=== PATIENT | male | born 1980 | race Caucasian/White ===

== ENCOUNTER 2017-03-05 10:18 | Emergency (ER) | payer OTHER ==
[~2017-03-05] VITALS: Ht 177.8 cm; Wt 95.3 kg
[~2017-03-05 10:18] MED LIST: AMARYL2 MG PO; LISINOPRIL10 MG PO; METFORMIN1000 MG PO
[2017-03-05] MEDS ORDERED: TRIPLE ANTIBI28.4 G1 T ×2 (11:13→11:14)
[2017-03-05] MEDS ORDERED: SEPTDS PO ×2 (11:13→11:14)
== END 2017-03-05 11:44 | disposition home or self-care (01) ==
LOC: ED 10:18
DX: L02.214 Cutaneous abscess of groin (principal); E10.65 Type 1 diabetes mellitus with hyperglycemia; Z91.19 Patient's noncompliance with other medical treatment and regimen

== ENCOUNTER → 2017-08-06 | Day surgery (SDC) | payer OTHER ==
[~2017-08-06] VITALS: Ht 172.7 cm; Wt 72.6 kg
[~2017-08-06] MED LIST changes: +ATORVASTATIN CA10 M1 PO; -LISINOPRIL10 MG PO; +LISINOPRIL5 MG PO; +NOVOLIN 70100 UNIT/1 SC; +OMEPRAZOLE40 MG PO; +SEPTDS PO; +TAB-A-VITE1 EACH PO; +TRIPLE ANTIBI28.4 G1 T
--- NOTE | ~2017-08-06 | O ---
[place], [place] OPERATIVE NOTE NAME: LAISHA ROWLAND UNIT #: [id number] ROOM: DOCTOR: ARNALDO SHEETS MD BIRTHDATE: [birth year] DOS: 08/06/2017 INDICATION FOR PROCEDURE: A 37-year-old patient who presented with solid food dysphagia, progressively worsening. ALLERGIES: No known medication. FAMILY HISTORY: Father with gastric CA. PAST SURGICAL HISTORY: ENT surgeries. PAST MEDICAL HISTORY: Hypertension, diabetes, hyperlipidemia, gastritis, and dysphagia. SOCIAL HISTORY: Nonsmoker, nonalcohol consumer. Drinks 4 cans of Pepsi per day that has been advised to abstain from. PROCEDURE: Today's procedure part of investigation is panendoscopy plus biopsy plus balloon dilation of esophagus. PREMEDICATION: Versed and Diprivan SCOPE: Olympus forward-viewing gastroscope Q10 video. REPORT: After putting the patient in left lateral position and application of lubricant to the scope, scope was introduced. Thereafter, under direct visualization, I advanced through the length of esophagus without difficulty. Benign esophageal stricture was identified. Gastric pouch was entered. Bile reflux gastritis seen. Antral biopsy obtained. Duodenal bulb, second and third part within normal limits. The patient was extubated to the mid gastric pouch. A balloon size 20 was introduced. Gastric pouch inflated to size 20 and gradually sweeped along the length of the entire esophagus. Highest resistance in the mid esophagus and lower esophagus was experienced. The patient extubated and tolerated the procedure well. IMPRESSION: Benign esophageal stricture, status post balloon dilation, bile reflux gastritis, status post biopsy. PLAN AND DISCUSSION: Omeprazole 20 mg 1 every day was added to the regimen and the patient advised to abstain from drinking 4 cans of carbonated sodas daily and follow up as outpatient routinely with you in office, p.r.n. visit with us in [facility]. I thank you very much indeed for your kind referral. [place], [place] OPERATIVE NOTE NAME: LAISHA ROWLAND UNIT #: [id number] ROOM: DOCTOR: ARNALDO SHEETS MD BIRTHDATE: [birth year] ARNALDO SHEETS MD CM:OPRECORD:OPERATIVE NOTE [id number] ARNALDO SHEETS MD 08/10/17 1441 interface
[2017-08-06 12:59] VITALS: BP 113/74
[2017-08-06 14:30] VITALS: BP 97/56
[2017-08-06 14:44] VITALS: BP 102/63
[2017-08-06 14:55] VITALS: BP 99/54
== END | disposition home or self-care (01) ==
LOC: SDC 08-03 08:45
DX: K29.50 Unspecified chronic gastritis without bleeding (principal); K22.2 Esophageal obstruction; I10 Essential (primary) hypertension; E11.9 Type 2 diabetes mellitus without complications; E78.5 Hyperlipidemia, unspecified; E66.09 Other obesity due to excess calories; Z80.0 Family history of malignant neoplasm of digestive organs; Z98.890 Other specified postprocedural states; Z79.899 Other long term (current) drug therapy; Z83.3 Family history of diabetes mellitus; Z82.49 Family history of ischemic heart disease and other diseases of the circulatory system; Z68.32 Body mass index [BMI] 32.0-32.9, adult

== ENCOUNTER → 2019-12-06 | Outpatient (CLI) | payer OTHER ==
[2019-12-06 10:15] LABS: BASO % 0.5 % (0.0-1.0); EOS # 0.2 10*3/uL (0.0-0.4); EOS % 1.8 % (1.0-4.0); LYMPH # 2.4 10*3/uL (1.3-4.4); LYMPH % 28.5 % (27.0-41.0); MEAN CELL VOLUME 82.9 fl (80.0-94.0); MEAN CORPUSCULAR HGB 26.2 pg (27.0-31.0); MEAN CORPUSCULAR HGB CONC 31.6 g/dl (33.0-37.0); MONO # 0.7 10*3/uL (0.1-1.0); NEUT # 5.1 10*3/uL (2.3-7.9); PLATELET COUNT AUTOMATED 331 10*3/uL (130-400); RED BLOOD COUNT 3.86 10*6/uL (4.50-5.90); RETICULOCYTE % 1.54 % (0.50-2.50); WHITE BLOOD COUNT 8.4 10*3/uL (4.8-10.8)
[2019-12-06 10:42] LABS: ALBUMIN 3.4 gm/dl (3.1-4.5); ALKALINE PHOSPHATASE 132 U/L (45-117); BUN 16 mg/dl (7-24); CHLORIDE 106 mmol/L (98-107); CHOLESTEROL 105 mg/dL (<200); CREATININE 1.11 mg/dL (0.70-1.30); GAMMA GLUTAMYL TRANSPEPTIDASE 30 U/L (15-85); HDL CHOLESTEROL 43 mg/dl (40-60); IRON 23 ug/dL (65-175); LDL CHOLESTEROL 40 mg/dL (9-159); POTASSIUM 4.1 mmol/L (3.5-5.1); SGOT/AST 20 IU/L (3-35); SGPT/ALT 35 U/L (12-78); SODIUM 140 mmol/L (136-145); TOTAL IRON BINDING CAPACITY 383 ug/dl (250-450); TOTAL PROTEIN 7.3 gm/dL (6.4-8.2); TRIGLYCERIDES 110 mg/dl (<150); VLDL CHOLESTEROL 22 mg/dL (6-40)
[2019-12-06 10:48] LABS: CPK 202 U/L (39-308)
[2019-12-06 10:53] LABS: BILIRUBIN NEGATIVE; BLOOD NEGATIVE (NEGATIVE); CLARITY CLEAR (CLEAR); COLOR YELLOW (YELLOW); GLUCOSE NEGATIVE; KETONE NEGATIVE; LEUKO ESTERASE NEGATIVE (NEGATIVE); NITRITE NEGATIVE (NEGATIVE); PH 6.5 (4.5-8.0); SPECIFIC GRAVITY 1.025 (1.001-1.030)
[2019-12-06 11:01] LABS: FERRITIN 4.5 ng/mL (22.0-322.0); VITAMIN D, 25-HYDROXY 45.9 ng/mL (30-100)
[2019-12-06 11:04] LABS: BACTERIA TRACE; MUCOUS 1+; WBC 0-2 wbc/hpf (0-5)
== END | disposition home or self-care (01) ==
LOC: LAB 09:35
PROVIDERS: ATTEND Family Medicine
DX: R79.89 Other specified abnormal findings of blood chemistry (principal); R53.83 Other fatigue; E55.9 Vitamin D deficiency, unspecified

== ENCOUNTER → 2020-06-04 | Outpatient (CLI) | payer OTHER ==
[2020-06-04 11:43] LABS: BASO # 0.1 10*3/uL (0.0-0.1); BASO % 0.8 % (0.0-1.0); EOS # 0.3 10*3/uL (0.0-0.4); EOS % 4.1 % (1.0-4.0); HEMATOCRIT 35.3 % (42.0-52.0); LYMPH # 2.3 10*3/uL (1.3-4.4); LYMPH % 28.7 % (27.0-41.0); MEAN CELL VOLUME 74.9 fl (80.0-94.0); MEAN CORPUSCULAR HGB 21.9 pg (27.0-31.0); MEAN CORPUSCULAR HGB CONC 29.2 g/dl (33.0-37.0); MEAN PLATELET VOLUME 9.6 fl (9.6-12.3); MONO # 0.6 10*3/uL (0.1-1.0); MONO % 7.6 % (3.0-9.0); NEUT # 4.6 10*3/uL (2.3-7.9); NEUT % 58.7 % (47.0-73.0); PLATELET COUNT AUTOMATED 334 10*3/uL (130-400); RED BLOOD COUNT 4.71 10*6/uL (4.50-5.90); RETICULOCYTE % 1.51 % (0.50-2.50); WHITE BLOOD COUNT 7.9 10*3/uL (4.8-10.8)
[2020-06-04 11:58] LABS: ALBUMIN 3.5 gm/dl (3.1-4.5); ALKALINE PHOSPHATASE 134 U/L (45-117); BUN 15 mg/dl (7-24); CHLORIDE 108 mmol/L (98-107); CHOLESTEROL 106 mg/dL (<200); CPK 245 U/L (39-308); CREATININE 1.05 mg/dL (0.70-1.30); GAMMA GLUTAMYL TRANSPEPTIDASE 19 U/L (15-85); HDL CHOLESTEROL 48 mg/dl (40-60); IRON 26 ug/dL (65-175); LDL CHOLESTEROL 35 mg/dL (9-159); POTASSIUM 4.3 mmol/L (3.5-5.1); SGOT/AST 19 IU/L (3-35); SGPT/ALT 28 U/L (12-78); SODIUM 141 mmol/L (136-145); TOTAL IRON BINDING CAPACITY 437 ug/dl (250-450); TOTAL PROTEIN 7.6 gm/dL (6.4-8.2); TRIGLYCERIDES 116 mg/dl (<150); VLDL CHOLESTEROL 23 mg/dL (6-40)
[2020-06-04 12:12] LABS: BILIRUBIN Negative (Negative); BLOOD Negative (Negative); CLARITY Clear (Clear); COLOR Yellow (Yellow); GLUCOSE Negative (Negative); KETONE Negative (Negative); LEUKO ESTERASE Negative (Negative); NITRITE Negative (Negative)
[2020-06-04 12:36] LABS: VITAMIN D, 25-HYDROXY 47.9 ng/mL (30-100)
[2020-06-04 12:37] LABS: FERRITIN 5.1 ng/mL (22.0-322.0)
[2020-06-04 13:20] LABS: EPITHELIAL CELLS 0-2; RBC 0-2 rbc/hpf (0-2); WBC 0-2 wbc/hpf (0-5)
== END | disposition home or self-care (01) ==
LOC: LAB 11:18
PROVIDERS: ATTEND Family Medicine
DX: E78.5 Hyperlipidemia, unspecified (principal); E55.9 Vitamin D deficiency, unspecified; R53.83 Other fatigue; R79.89 Other specified abnormal findings of blood chemistry

== ENCOUNTER → 2020-11-28 | Outpatient (CLI) | payer OTHER ==
[2020-11-28 10:45] LABS: BASO # 0.1 10*3/uL (0.0-0.1); BASO % 0.6 % (0.0-1.0); EOS # 0.7 10*3/uL (0.0-0.4); EOS % 7.8 % (1.0-4.0); HEMATOCRIT 38.8 % (42.0-52.0); LYMPH # 2.3 10*3/uL (1.3-4.4); LYMPH % 26.4 % (27.0-41.0); MEAN CELL VOLUME 86.4 fl (80.0-94.0); MEAN CORPUSCULAR HGB 28.1 pg (27.0-31.0); MEAN CORPUSCULAR HGB CONC 32.5 g/dl (33.0-37.0); MONO # 0.6 10*3/uL (0.1-1.0); MONO % 6.8 % (3.0-9.0); NEUT # 5.1 10*3/uL (2.3-7.9); NEUT % 58.1 % (47.0-73.0); PLATELET COUNT AUTOMATED 280 10*3/uL (130-400); RED BLOOD COUNT 4.49 10*6/uL (4.50-5.90); RED CELL DISTRI WIDTH 15.4 % (0-14.5); RETICULOCYTE % 1.67 % (0.50-2.50); WHITE BLOOD COUNT 8.8 10*3/uL (4.8-10.8)
[2020-11-28 10:46] LABS: BILIRUBIN Negative (Negative); BLOOD Negative (Negative); CLARITY Clear (Clear); COLOR Yellow (Yellow); GLUCOSE Negative (Negative); KETONE Negative (Negative); LEUKO ESTERASE Negative (Negative); NITRITE Negative (Negative)
[2020-11-28 11:03] LABS: ALBUMIN 3.7 gm/dl (3.1-4.5); ALKALINE PHOSPHATASE 157 U/L (45-117); BUN 10 mg/dl (7-24); CHLORIDE 106 mmol/L (98-107); CHOLESTEROL 118 mg/dL (<200); CREATININE 0.99 mg/dL (0.70-1.30); GAMMA GLUTAMYL TRANSPEPTIDASE 30 U/L (15-85); IRON 31 ug/dL (65-175); LDL CHOLESTEROL 40 mg/dL (9-159); POTASSIUM 4.2 mmol/L (3.5-5.1); SGOT/AST 22 IU/L (3-35); SGPT/ALT 42 U/L (12-78); SODIUM 140 mmol/L (136-145); TOTAL IRON BINDING CAPACITY 368 ug/dl (250-450); TOTAL PROTEIN 7.6 gm/dL (6.4-8.2); TRIGLYCERIDES 156 mg/dl (<150)
[2020-11-28 11:09] LABS: CPK 151 U/L (39-308); WBC 0-2 wbc/hpf (0-5)
[2020-11-28 11:52] LABS: FERRITIN 8.9 ng/mL (22.0-322.0); VITAMIN D, 25-HYDROXY 44.1 ng/mL (30-100)
== END | disposition home or self-care (01) ==
LOC: LAB 10:19
PROVIDERS: ATTEND Family Medicine
DX: E78.5 Hyperlipidemia, unspecified (principal); R79.89 Other specified abnormal findings of blood chemistry; R53.83 Other fatigue; R74.8 Abnormal levels of other serum enzymes; E55.9 Vitamin D deficiency, unspecified; E10.9 Type 1 diabetes mellitus without complications

== ENCOUNTER → 2021-06-09 | Outpatient (CLI) | payer OTHER ==
[2021-06-09 10:18] LABS: BASO % 0.6 % (0.0-1.0); EOS # 0.1 10*3/uL (0.0-0.4); EOS % 2.1 % (1.0-4.0); HEMATOCRIT 41.8 % (42.0-52.0); LYMPH # 1.8 10*3/uL (1.3-4.4); LYMPH % 27.2 % (27.0-41.0); MEAN CELL VOLUME 88.9 fl (80.0-94.0); MEAN CORPUSCULAR HGB 30.2 pg (27.0-31.0); MEAN PLATELET VOLUME 9.8 fl (9.6-12.3); MONO # 0.4 10*3/uL (0.1-1.0); MONO % 6.4 % (3.0-9.0); NEUT # 4.3 10*3/uL (2.3-7.9); NEUT % 63.6 % (47.0-73.0); PLATELET COUNT AUTOMATED 249 10*3/uL (130-400); RED CELL DISTRI WIDTH 14.5 % (0-14.5); RETICULOCYTE % 2.44 % (0.50-2.50); WHITE BLOOD COUNT 6.7 10*3/uL (4.8-10.8)
[2021-06-09 10:25] LABS: BILIRUBIN Negative (Negative); BLOOD Negative (Negative); CLARITY Clear (Clear); COLOR Yellow (Yellow); GLUCOSE Negative (Negative); KETONE Negative (Negative); LEUKO ESTERASE Negative (Negative); NITRITE Negative (Negative)
[2021-06-09 10:35] LABS: CHLORIDE 106 mmol/L (98-107); POTASSIUM 4.1 mmol/L (3.5-5.1); SODIUM 141 mmol/L (136-145)
[2021-06-09 10:53] LABS: ALKALINE PHOSPHATASE 123 U/L (45-117); BUN 12 mg/dl (7-24); CHOLESTEROL 113 mg/dL (<200); CREATININE 0.95 mg/dL (0.70-1.30); GAMMA GLUTAMYL TRANSPEPTIDASE 39 U/L (15-85); IRON 56 ug/dL (65-175); LDL CHOLESTEROL 40 mg/dL (9-159); SGOT/AST 27 IU/L (3-35); SGPT/ALT 66 U/L (12-78); TOTAL IRON BINDING CAPACITY 311 ug/dl (250-450); TOTAL PROTEIN 7.3 gm/dL (6.4-8.2); TRIGLYCERIDES 154 mg/dl (<150)
[2021-06-09 11:12] LABS: BACTERIA TRACE; EPITHELIAL CELLS 0-2; MUCOUS TRACE; RBC 0-2 rbc/hpf (0-2); WBC 0-2 wbc/hpf (0-5)
[2021-06-09 11:49] LABS: FERRITIN 21.6 ng/mL (22.0-322.0); VITAMIN D, 25-HYDROXY 48.6 ng/mL (30-100)
== END | disposition home or self-care (01) ==
LOC: LAB 09:50
PROVIDERS: ATTEND Family Medicine
DX: E55.9 Vitamin D deficiency, unspecified (principal); R79.89 Other specified abnormal findings of blood chemistry; R53.83 Other fatigue; R74.8 Abnormal levels of other serum enzymes; E10.9 Type 1 diabetes mellitus without complications

== ENCOUNTER → 2021-11-10 | Outpatient (CLI) | payer OTHER ==
[2021-11-10 11:13] LABS: BASO % 0.6 % (0.0-1.0); BILIRUBIN Negative (Negative); BLOOD Negative (Negative); CLARITY Clear (Clear); COLOR Dark Yellow (Yellow); EOS # 0.1 10*3/uL (0.0-0.4); EOS % 2.2 % (1.0-4.0); GLUCOSE Negative (Negative); HEMATOCRIT 34.7 % (42.0-52.0); KETONE Trace (Negative); LEUKO ESTERASE Negative (Negative); LYMPH # 1.6 10*3/uL (1.3-4.4); LYMPH % 25.5 % (27.0-41.0); MEAN CELL VOLUME 94.3 fl (80.0-94.0); MEAN CORPUSCULAR HGB 30.4 pg (27.0-31.0); MEAN CORPUSCULAR HGB CONC 32.3 g/dl (33.0-37.0); MONO # 0.4 10*3/uL (0.1-1.0); MONO % 6.7 % (3.0-9.0); NEUT % 64.8 % (47.0-73.0); NITRITE Negative (Negative); PLATELET COUNT AUTOMATED 276 10*3/uL (130-400); RED BLOOD COUNT 3.68 10*6/uL (4.50-5.90); RED CELL DISTRI WIDTH 13.3 % (0-14.5); RETICULOCYTE % 2.88 % (0.50-2.50); SPECIFIC GRAVITY 1.025 (1.001-1.030); WHITE BLOOD COUNT 6.2 10*3/uL (4.8-10.8)
[2021-11-10 11:25] LABS: BACTERIA TRACE; WBC 0-2 wbc/hpf (0-5)
[2021-11-10 13:29] LABS: CHLORIDE 111 mmol/L (98-107); POTASSIUM 4.3 mmol/L (3.5-5.1); SODIUM 142 mmol/L (136-145)
[2021-11-10 13:46] LABS: ALKALINE PHOSPHATASE 114 U/L (45-117); BUN 13 mg/dl (7-24); CHOLESTEROL 104 mg/dL (<200); CREATININE 0.89 mg/dL (0.70-1.30); GAMMA GLUTAMYL TRANSPEPTIDASE 18 U/L (15-85); IRON 49 ug/dL (65-175); LDL CHOLESTEROL 39 mg/dL (9-159); SGOT/AST 26 IU/L (3-35); SGPT/ALT 33 U/L (12-78); TRIGLYCERIDES 90 mg/dl (<150)
== END | disposition home or self-care (01) ==
LOC: LAB 10:21
PROVIDERS: ATTEND Family Medicine
DX: E78.5 Hyperlipidemia, unspecified (principal); R79.89 Other specified abnormal findings of blood chemistry; R53.83 Other fatigue; R74.8 Abnormal levels of other serum enzymes

== ENCOUNTER → 2022-03-23 | Outpatient (CLI) | payer OTHER ==
[2022-03-23 10:12] LABS: BILIRUBIN Negative (Negative); BLOOD Negative (Negative); CLARITY Clear (Clear); COLOR Yellow (Yellow); GLUCOSE Negative (Negative); KETONE Negative (Negative); LEUKO ESTERASE Negative (Negative); NITRITE Negative (Negative); PH 5.5 (4.5-8.0); SPECIFIC GRAVITY 1.025 (1.001-1.030)
[2022-03-23 10:15] LABS: BASO % 0.4 % (0.0-1.0); EOS # 0.2 10*3/uL (0.0-0.4); EOS % 2.7 % (1.0-4.0); HEMATOCRIT 43.3 % (42.0-52.0); LYMPH # 1.9 10*3/uL (1.3-4.4); LYMPH % 26.8 % (27.0-41.0); MEAN CELL VOLUME 88.5 fl (80.0-94.0); MEAN CORPUSCULAR HGB 29.7 pg (27.0-31.0); MEAN CORPUSCULAR HGB CONC 33.5 g/dl (33.0-37.0); MEAN PLATELET VOLUME 10.3 fl (9.6-12.3); MONO # 0.4 10*3/uL (0.1-1.0); MONO % 6.4 % (3.0-9.0); NEUT # 4.4 10*3/uL (2.3-7.9); NEUT % 63.4 % (47.0-73.0); PLATELET COUNT AUTOMATED 238 10*3/uL (130-400); RED BLOOD COUNT 4.89 10*6/uL (4.50-5.90); RED CELL DISTRI WIDTH 13.5 % (0-14.5); RETICULOCYTE % 1.35 % (0.50-2.50); WHITE BLOOD COUNT 6.9 10*3/uL (4.8-10.8)
[2022-03-23 10:32] LABS: ALKALINE PHOSPHATASE 125 U/L (46-116); BUN 17 mg/dl (9-23); CHLORIDE 104 mmol/L (98-107); CHOLESTEROL 115 mg/dL (<200); GAMMA GLUTAMYL TRANSPEPTIDASE 43 U/L (0-73); LDL CHOLESTEROL 47 mg/dL (9-159); POTASSIUM 4.4 mmol/L (3.4-5.1); SGPT/ALT 49 U/L (10-49); THYROID STIM HORMONE (HS) 1.948 uIU/ml (0.550-4.780); TRIGLYCERIDES 100 mg/dl (<150)
[2022-03-23 10:36] LABS: BACTERIA TRACE; EPITHELIAL CELLS 0-2; RBC 0-2 rbc/hpf (0-2); WBC 0-2 wbc/hpf (0-5)
== END | disposition home or self-care (01) ==
LOC: LAB 09:22
PROVIDERS: ATTEND Family Medicine
DX: E78.5 Hyperlipidemia, unspecified (principal); E55.9 Vitamin D deficiency, unspecified; R79.89 Other specified abnormal findings of blood chemistry; R53.83 Other fatigue; R74.8 Abnormal levels of other serum enzymes

== ENCOUNTER → 2022-08-19 | Outpatient (CLI) | payer MEDICAID ==
[2022-08-19 11:26] LABS: BILIRUBIN Negative (Negative); BLOOD Negative (Negative); CLARITY Clear (Clear); COLOR Yellow (Yellow); GLUCOSE Negative (Negative); KETONE Negative (Negative); LEUKO ESTERASE Negative (Negative); NITRITE Negative (Negative); PH 5.5 (4.5-8.0); SPECIFIC GRAVITY 1.025 (1.001-1.030)
[2022-08-19 11:27] LABS: BASO % 0.4 % (0.0-1.0); EOS # 0.1 10*3/uL (0.0-0.4); EOS % 1.4 % (1.0-4.0); HEMATOCRIT 43.8 % (42.0-52.0); LYMPH # 2.2 10*3/uL (1.3-4.4); LYMPH % 29.2 % (27.0-41.0); MEAN CELL VOLUME 92.2 fl (80.0-94.0); MEAN CORPUSCULAR HGB 31.4 pg (27.0-31.0); MEAN PLATELET VOLUME 10.2 fl (9.6-12.3); MONO # 0.5 10*3/uL (0.1-1.0); MONO % 6.6 % (3.0-9.0); NEUT # 4.7 10*3/uL (2.3-7.9); NEUT % 62.1 % (47.0-73.0); PLATELET COUNT AUTOMATED 251 10*3/uL (130-400); RED BLOOD COUNT 4.75 10*6/uL (4.50-5.90); RED CELL DISTRI WIDTH 12.1 % (0-14.5); RETICULOCYTE % 1.09 % (0.50-2.50); WHITE BLOOD COUNT 7.6 10*3/uL (4.8-10.8)
[2022-08-19 11:48] LABS: BACTERIA TRACE; EPITHELIAL CELLS 0-2; RBC 0-2 rbc/hpf (0-2); WBC 0-2 wbc/hpf (0-5)
[2022-08-19 11:55] LABS: ALKALINE PHOSPHATASE 137 U/L (46-116); BUN 16 mg/dl (9-23); CHLORIDE 105 mmol/L (98-107); CHOLESTEROL 101 mg/dL (<200); GAMMA GLUTAMYL TRANSPEPTIDASE 40 U/L (0-73); LDL CHOLESTEROL 42 mg/dL (9-159); POTASSIUM 4.1 mmol/L (3.4-5.1); SGPT/ALT 35 U/L (10-49); T3 UPTAKE 23.6 % (22.4-36.7); THYROID STIM HORMONE (HS) 1.073 uIU/ml (0.550-4.780); THYROXINE (T4) TOTAL 8.3 ug/dl (4.5-10.9); TOTAL PROTEIN 7.5 gm/dL (6.0-8.0); TRIGLYCERIDES 91 mg/dl (<150)
[2022-08-19 11:56] LABS: VITAMIN D, 25-HYDROXY 52.3 ng/mL (30-100)
== END | disposition home or self-care (01) ==
LOC: LAB 10:26
PROVIDERS: ATTEND Family Medicine
DX: E78.5 Hyperlipidemia, unspecified (principal); E55.9 Vitamin D deficiency, unspecified; R79.89 Other specified abnormal findings of blood chemistry; R53.83 Other fatigue; R74.8 Abnormal levels of other serum enzymes

== ENCOUNTER → 2022-12-23 | Outpatient (CLI) | payer MEDICAID ==
[2022-12-23 10:29] LABS: BASO % 0.4 % (0.0-1.0); EOS # 0.2 10*3/uL (0.0-0.4); EOS % 2.7 % (1.0-4.0); HEMATOCRIT 42.5 % (42.0-52.0); LYMPH # 2.1 10*3/uL (1.3-4.4); MEAN CELL VOLUME 94.4 fl (80.0-94.0); MEAN CORPUSCULAR HGB 31.8 pg (27.0-31.0); MEAN CORPUSCULAR HGB CONC 33.6 g/dl (33.0-37.0); MEAN PLATELET VOLUME 9.6 fl (9.6-12.3); MONO # 0.5 10*3/uL (0.1-1.0); MONO % 6.6 % (3.0-9.0); NEUT # 4.5 10*3/uL (2.3-7.9); PLATELET COUNT AUTOMATED 229 10*3/uL (130-400); RED CELL DISTRI WIDTH 12.6 % (0-14.5); RETICULOCYTE % 0.91 % (0.50-2.50); WHITE BLOOD COUNT 7.4 10*3/uL (4.8-10.8)
[2022-12-23 10:33] LABS: BILIRUBIN Negative (Negative); BLOOD Negative (Negative); CLARITY Clear (Clear); COLOR Yellow (Yellow); GLUCOSE Negative (Negative); KETONE Negative (Negative); LEUKO ESTERASE Negative (Negative); NITRITE Negative (Negative); PH 5.5 (4.5-8.0)
[2022-12-23 10:56] LABS: ALKALINE PHOSPHATASE 147 U/L (46-116); BUN 14 mg/dl (9-23); CHLORIDE 106 mmol/L (98-107); CHOLESTEROL 110 mg/dL (<200); GAMMA GLUTAMYL TRANSPEPTIDASE 33 U/L (0-73); LDL CHOLESTEROL 46 mg/dL (9-159); POTASSIUM 4.1 mmol/L (3.4-5.1); SGPT/ALT 33 U/L (10-49); TRIGLYCERIDES 111 mg/dl (<150)
[2022-12-23 10:57] LABS: VITAMIN D, 25-HYDROXY 58.5 ng/mL (30-100)
[2022-12-23 10:58] LABS: EPITHELIAL CELLS 0-2
== END | disposition home or self-care (01) ==
LOC: LAB 10:02
PROVIDERS: ATTEND Family Medicine
DX: E55.9 Vitamin D deficiency, unspecified (principal); R79.89 Other specified abnormal findings of blood chemistry; R53.83 Other fatigue; E78.5 Hyperlipidemia, unspecified

== ENCOUNTER → 2023-05-25 | Outpatient (CLI) | payer MEDICAID ==
[2023-05-25 10:49] LABS: BASO % 0.5 % (0.0-1.0); EOS # 0.2 10*3/uL (0.0-0.4); EOS % 2.4 % (1.0-4.0); HEMATOCRIT 45.3 % (42.0-52.0); LYMPH # 1.7 10*3/uL (1.3-4.4); MEAN CELL VOLUME 95.6 fl (80.0-94.0); MEAN CORPUSCULAR HGB 31.4 pg (27.0-31.0); MEAN CORPUSCULAR HGB CONC 32.9 g/dl (33.0-37.0); MEAN PLATELET VOLUME 9.5 fl (9.6-12.3); MONO # 0.4 10*3/uL (0.1-1.0); MONO % 6.2 % (3.0-9.0); NEUT # 4.3 10*3/uL (2.3-7.9); NEUT % 64.7 % (47.0-73.0); PLATELET COUNT AUTOMATED 242 10*3/uL (130-400); RED BLOOD COUNT 4.74 10*6/uL (4.50-5.90); RED CELL DISTRI WIDTH 13.2 % (0-14.5); RETICULOCYTE % 1.14 % (0.50-2.50); WHITE BLOOD COUNT 6.6 10*3/uL (4.8-10.8)
[2023-05-25 10:50] LABS: BILIRUBIN Negative (Negative); BLOOD Negative (Negative); CLARITY Clear (Clear); COLOR Yellow (Yellow); GLUCOSE Negative (Negative); KETONE Negative (Negative); LEUKO ESTERASE Negative (Negative); NITRITE Negative (Negative); PH 6.5 (4.5-8.0); SPECIFIC GRAVITY 1.025 (1.001-1.030)
[2023-05-25 11:03] LABS: BACTERIA TRACE; WBC 0-2 wbc/hpf (0-5)
[2023-05-25 11:38] LABS: ALKALINE PHOSPHATASE 134 U/L (46-116); BUN 15 mg/dl (9-23); CHLORIDE 105 mmol/L (98-107); CHOLESTEROL 133 mg/dL (<200); GAMMA GLUTAMYL TRANSPEPTIDASE 40 U/L (0-73); LDL CHOLESTEROL 60 mg/dL (9-159); POTASSIUM 4.3 mmol/L (3.4-5.1); SGPT/ALT 35 U/L (5-49); T3 UPTAKE 28.7 % (22.4-36.7); THYROXINE (T4) TOTAL 6.1 ug/dl (4.5-10.9); TOTAL PROTEIN 7.2 gm/dL (6.0-8.0); TRIGLYCERIDES 137 mg/dl (<150)
== END | disposition home or self-care (01) ==
LOC: LAB 10:26
PROVIDERS: ATTEND Family Medicine
DX: R79.89 Other specified abnormal findings of blood chemistry (principal); R53.83 Other fatigue; E78.5 Hyperlipidemia, unspecified; E55.9 Vitamin D deficiency, unspecified

== ENCOUNTER → 2023-11-23 | Outpatient (CLI) | payer MEDICAID ==
[2023-11-23 10:56] LABS: BASO # 0.1 10*3/uL (0.0-0.1); BASO % 0.7 % (0.0-1.0); EOS # 0.3 10*3/uL (0.0-0.4); EOS % 3.7 % (1.0-4.0); HEMATOCRIT 42.4 % (42.0-52.0); LYMPH # 2.1 10*3/uL (1.3-4.4); LYMPH % 25.7 % (27.0-41.0); MEAN CELL VOLUME 91.4 fl (80.0-94.0); MEAN CORPUSCULAR HGB 32.3 pg (27.0-31.0); MEAN CORPUSCULAR HGB CONC 35.4 g/dl (33.0-37.0); MEAN PLATELET VOLUME 9.8 fl (9.6-12.3); MONO # 0.5 10*3/uL (0.1-1.0); MONO % 6.7 % (3.0-9.0); NEUT # 5.1 10*3/uL (2.3-7.9); NEUT % 62.8 % (47.0-73.0); PLATELET COUNT AUTOMATED 247 10*3/uL (130-400); RED BLOOD COUNT 4.64 10*6/uL (4.50-5.90); RED CELL DISTRI WIDTH 12.3 % (0-14.5); WHITE BLOOD COUNT 8.1 10*3/uL (4.8-10.8)
[2023-11-23 11:02] LABS: BILIRUBIN Negative (Negative); BLOOD Negative (Negative); CLARITY Clear (Clear); COLOR Yellow (Yellow); GLUCOSE Negative (Negative); KETONE Negative (Negative); LEUKO ESTERASE Negative (Negative); NITRITE Negative (Negative); PH 5.5 (4.5-8.0)
[2023-11-23 11:21] LABS: ALKALINE PHOSPHATASE 147 U/L (46-116); BUN 12 mg/dl (9-23); CHLORIDE 104 mmol/L (98-107); CHOLESTEROL 112 mg/dL (<200); GAMMA GLUTAMYL TRANSPEPTIDASE 35 U/L (0-73); LDL CHOLESTEROL 52 mg/dL (9-159); POTASSIUM 4.4 mmol/L (3.4-5.1); SGPT/ALT 30 U/L (5-49); TOTAL PROTEIN 7.4 gm/dL (6.0-8.0); TRIGLYCERIDES 92 mg/dl (<150)
[2023-11-23 12:55] LABS: BACTERIA TRACE; EPITHELIAL CELLS 0-2
== END | disposition home or self-care (01) ==
LOC: LAB 10:25
PROVIDERS: ATTEND Family Medicine
DX: R79.89 Other specified abnormal findings of blood chemistry (principal); R53.83 Other fatigue; E78.5 Hyperlipidemia, unspecified; E10.9 Type 1 diabetes mellitus without complications; E55.9 Vitamin D deficiency, unspecified

== ENCOUNTER → 2024-09-05 | Outpatient (CLI) | payer MEDICAID ==
[2024-09-05 12:36] LABS: BASO % 0.4 % (0.0-1.0); EOS # 0.1 10*3/uL (0.0-0.4); EOS % 1.8 % (1.0-4.0); HEMATOCRIT 34.9 % (42.0-52.0); MEAN CELL VOLUME 91.1 fl (80.0-94.0); MEAN CORPUSCULAR HGB 30.8 pg (27.0-31.0); MEAN CORPUSCULAR HGB CONC 33.8 g/dl (33.0-37.0); MEAN PLATELET VOLUME 9.7 fl (9.6-12.3); MONO # 0.4 10*3/uL (0.1-1.0); MONO % 6.1 % (3.0-9.0); NEUT # 4.8 10*3/uL (2.3-7.9); NEUT % 66.5 % (47.0-73.0); PLATELET COUNT AUTOMATED 237 10*3/uL (130-400); RED BLOOD COUNT 3.83 10*6/uL (4.50-5.90); RETICULOCYTE % 1.97 % (0.50-2.50); WHITE BLOOD COUNT 7.2 10*3/uL (4.8-10.8)
[2024-09-05 12:37] LABS: BILIRUBIN Negative (Negative); BLOOD Negative (Negative); CLARITY Clear (Clear); COLOR Yellow (Yellow); GLUCOSE Negative (Negative); KETONE Trace (Negative); LEUKO ESTERASE Trace (Negative); NITRITE Negative (Negative); PH 5.5 (4.5-8.0); SPECIFIC GRAVITY 1.025 (1.001-1.030)
[2024-09-05 13:06] LABS: ALKALINE PHOSPHATASE 119 U/L (46-116); BUN 13 mg/dl (9-23); CHLORIDE 107 mmol/L (98-107); CHOLESTEROL 106 mg/dL (<200); GAMMA GLUTAMYL TRANSPEPTIDASE 21 U/L (0-73); LDL CHOLESTEROL 43 mg/dL (9-159); SGPT/ALT 19 U/L (5-49); T3 UPTAKE 31.3 % (22.4-36.7); TOTAL PROTEIN 6.9 gm/dL (6.0-8.0); TRIGLYCERIDES 99 mg/dl (<150)
[2024-09-05 13:08] LABS: VITAMIN D, 25-HYDROXY 55.3 ng/mL (30-100)
[2024-09-05 13:45] LABS: BACTERIA TRACE; EPITHELIAL CELLS 0-2; MUCOUS 3+
== END | disposition home or self-care (01) ==
LOC: LAB 12:08
PROVIDERS: ATTEND Family Medicine
DX: E78.5 Hyperlipidemia, unspecified (principal); E55.9 Vitamin D deficiency, unspecified; R79.89 Other specified abnormal findings of blood chemistry; R53.83 Other fatigue

== ENCOUNTER → 2024-10-04 | Outpatient (CLI) | payer MEDICAID ==
[2024-10-04 08:49] LABS: BASO # 0.0 10*3/uL (0.0-0.1); BASO % 0.4 % (0.0-1.0); EOS # 0.2 10*3/uL (0.0-0.4); EOS % 2.3 % (1.0-4.0); MEAN CELL VOLUME 94.8 fl (80.0-94.0); MEAN CORPUSCULAR HGB 30.3 pg (27.0-31.0); MEAN PLATELET VOLUME 9.9 fl (9.6-12.3); MONO # 0.6 10*3/uL (0.1-1.0); MONO % 7.3 % (3.0-9.0); NEUT # 5.5 10*3/uL (2.3-7.9); NEUT % 69.1 % (47.0-73.0); NUCLEATED RED BLOOD CELL 0.0 % (0.0-0.0); NUCLEATED RED BLOOD CELL 0.0 10*3/uL (0.0-0.0); PLATELET COUNT AUTOMATED 274 10*3/uL (130-400); RED CELL DISTRI WIDTH 13.2 % (0-14.5); RETICULOCYTE % 2.61 % (0.50-2.50)
== END | disposition home or self-care (01) ==
LOC: LAB 08:26
PROVIDERS: ATTEND Family Medicine
DX: R53.83 Other fatigue (principal); R79.89 Other specified abnormal findings of blood chemistry

== ENCOUNTER → 2025-03-21 | Outpatient (CLI) | payer MEDICAID ==
[2025-03-21 09:57] LABS: MEAN CELL VOLUME 89.0 fl (80.0-94.0); MEAN CORPUSCULAR HGB 29.3 pg (27.0-31.0); MEAN PLATELET VOLUME 9.8 fl (9.6-12.3); NUCLEATED RED BLOOD CELL 0.0 % (0.0-0.0); NUCLEATED RED BLOOD CELL 0.0 10*3/uL (0.0-0.0); PLATELET COUNT AUTOMATED 227 10*3/uL (130-400); RED CELL DISTRI WIDTH 13.6 % (0-14.5); RETICULOCYTE % 1.22 % (0.50-2.50)
[2025-03-21 10:07] LABS: BILIRUBIN Negative (Negative); BLOOD Negative (Negative); CLARITY Clear (Clear); COLOR Yellow (Yellow); KETONE Negative (Negative); LEUKO ESTERASE Negative (Negative); NITRITE Negative (Negative); PH 5.5 (4.5-8.0); SPECIFIC GRAVITY >= 1.030 (1.001-1.030); UROBILINOGEN 0.2 E.U./dl (0.0-1.0)
[2025-03-21 10:23] LABS: BASOPHILS 1 % (0-1); PLATELET SUFFICIENCY NORMAL (NORMAL)
[2025-03-21 10:33] LABS: BACTERIA 1+; EPITHELIAL CELLS 0-2; RBC 0-2 rbc/hpf (0-2); WBC 0-2 wbc/hpf (0-5)
[2025-03-21 10:51] LABS: BUN 15 mg/dl (9-23); GAMMA GLUTAMYL TRANSFERASE 22 U/L (0-73); LDL CHOLESTEROL 58 mg/dL (9-159); SGPT/ALT 32 U/L (5-49); T3 UPTAKE 31.4 % (22.4-36.7); THYROXINE (T4) TOTAL 5.9 ug/dl (4.5-10.9)
[2025-03-21 11:04] LABS: VITAMIN D, 25-HYDROXY 49.6 ng/mL (30-100)
[2025-03-22 16:07] LABS: A/G RATIO 1.1 (0.7-1.7); BETA GLOBULIN 0.9 g/dL (0.7-1.3); GLOBULIN, TOTAL 3.0 g/dL (2.2-3.9)
== END | disposition home or self-care (01) ==
LOC: LAB 09:30
PROVIDERS: ATTEND Family Medicine
DX: E78.5 Hyperlipidemia, unspecified (principal); R79.89 Other specified abnormal findings of blood chemistry; R53.83 Other fatigue; E55.9 Vitamin D deficiency, unspecified